=== PATIENT | male | born 1970 | race African-American/Black ===

== ENCOUNTER 2017-04-17 21:03 | Emergency (ER) | payer SELFPAY ==
[~2017-04-17] VITALS: Ht 162.6 cm; Wt 66.0 kg
[2017-04-17 21:05] VITALS: BP 139/95; PULSE 78; RESP 16; TEMP 98; O2SAT 98
[2017-04-17] MEDS ORDERED: BACT800T5 PO (21:41)
[2017-04-17] MEDS ORDERED: DICL75TA PO (21:41)
[2017-04-17] MEDS ORDERED: SULFAMETHOXAZOLE-TRIMETHOPRIM DS 800-160 MG TAB PO ONE (21:45)
[2017-04-17] MEDS ORDERED: ACETAMINOPHEN/HYDROcodone 325 MG/5 MG TAB PO ONE (21:45)
--- NOTE | 2017-04-17 21:49 | PD ---
HPI Chief Complaint: Skin Problem Time Seen by Provider: 21:22 Travel History International Travel<30 days: No Contact w/Intl Traveler<30days: No Traveled to known affect area: No History of Present Illness HPI 47-year-old black male presents emergency Department with complains of a painful lump to his left face over the past week. He states that he had squeezed it multiple times and express pus. He feels this started after getting a ingrown hair when he had shaved the week before. He also states that he's had some pain and swelling in his right little toe. 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 His feet are very hot and sweaty. Patient denies any fever chills. Symptoms are moderate. No alleviating factors. PFSH Past Medical History Medical History: Denies Significant Hx Immunizations Current: Yes Tetanus Vaccination: < 5 Years Past Surgical History Surgical History: No Previous Surgery Social History Alcohol Use: No Tobacco Use: Yes Substance Use: No Allergies-Medications (Allergen,Severity, Reaction): Coded Allergies: No Known Allergies (Unverified , 04/17/17) Reported Meds & Prescriptions Reported Meds & Active Scripts Active Diclofenac Sodium DR (Diclofenac Sodium) 75 Mg Tabdr 75 Mg PO BID Bactrim DS (Sulfamethoxazole-Trimethoprim) 800-160 Mg Tab 1 Tab PO BID Review of Systems General / Constitutional: No: Fever Eyes: No: Visual changes HENT: No: Headaches Cardiovascular: No: Chest Pain or Discomfort Respiratory: No: Shortness of Breath Gastrointestinal: No: Abdominal Pain Genitourinary: No: Dysuria Musculoskeletal: Positive: Pain Skin: Positive Rash, Positive Lumps Neurologic: No: Weakness Psychiatric: No: Depression Endocrine: No: Polydipsia Hematologic/Lymphatic: No: Easy Bruising Physical Exam Narrative GENERAL: This is a well-nourished, well-developed patient, in no apparent distress. SKIN: Patient has a 1.5 x 2 cm fluctuant abscess to the left angle of the mandible. He has multiple scars from ingrown hairs to the left rodriguez. Warm and dry. HEAD: Atraumatic. Normocephalic. EYES: PERRL, EOMI, no discharge or injection. No scleral icterus. EARS: Clear NOSE: Nasal turbinates appear normal. THROAT: Mucosa pink and moist. Airway patent. NECK: Trachea midline. supple, moves head freely. LUNGS: Clear to auscultation. CV: Regular in rhythm. ABDOMEN: Soft nontender. EXT: No clubbing cyanosis or edema. Patient has maceration to the interdigital spaces of the fourth and fifth toe on the right foot. Data Data Last Documented VS Vital Signs Date Time Temp Pulse Resp B/P (MAP) Pulse Ox O2 Delivery O2 Flow Rate FiO2 04/17/17 21:05 98.0 78 16 139/95 (110) 98 Room Air Orders Orders Sulfamet-Trimeth Ds 800-160 Mg (Bactrim (04/17/17 21:45) Acetamin-Hydrocod 325-5 Mg ([place] 5-325 (04/17/17 21:45) Ed Discharge Order (04/17/17 21:41) MDM Medical Decision Making Medical Screen Exam Complete: Yes Emergency Medical Condition: Yes Medical Record Reviewed: Yes Differential Diagnosis MDM: High Differential diagnoses: Abscess, folliculitis, cellulitis, lymphangitis, abrasion, contact dermatitis, tinea pedis Narrative Course An incision and drainage has been performed to his left submandibular abscess. Patient's given Bactrim DS one Lortab 5 a grams by mouth here in the ER. Procedures Procedure Narrative I&D abscess: After the risks and benefits were discussed the following procedure was performed. The skin is prepped and draped in the usual sterile fashion using Betadine. The abscess is anesthetized with 1% lidocaine. After adequate anesthesia, an 11 blade scalpel is used to make a 2 centimeter central incision. Perulant material is expressed.. The wound is cleansed deeply using dilute Betadine and peroxide on Q-tips. The wound is packed open using iodoform gauze. A clean dressing is applied. The patient tolerated the procedure well. There was no complications. Follow-up instructions were given to the patient. Diagnosis Primary Impression: left rodriguez abscess Additional Impression: Tinea pedis Qualified Codes: B35.3 - Tinea pedis Patient Instructions: General Instructions Additional Instructions: Rest. Elevation. keep clean and dry. remove the packing in two days. Daily wound care with soap, water and Neosporin. Diclofenac and Bactrim DS. Lamisil AT 2-3 times daily for the next 2-4 weeks. Follow-up with a primary care doctor in one week. Return to the ER for any problems. Med/Other Pt SpecificInfo: Prescription(s) given Scripts Diclofenac Sodium DR (Diclofenac Sodium DR) 75 Mg Tabdr 75 MG PO BID, #20 TAB 0 Refills Prov: Wes Bonner MD 04/17/17 Sulfamethoxazole-Trimethoprim (Bactrim DS) 800-160 Mg Tab 1 TAB PO BID for Infection, #20 TAB 0 Refills Prov: Wes Bonner MD 04/17/17 Disposition: 01 DISCHARGE HOME Condition: Stable Juan Castaneda Apr 17, 2017 21:49
== END 2017-04-17 22:18 | disposition home or self-care (01) ==
LOC: NEPD 21:03
DX: K12.2 Cellulitis and abscess of mouth (principal); B35.3 Tinea pedis; Z72.0 Tobacco use
CPT/HCPCS: 10061

== ENCOUNTER 2017-05-06 17:32 | Emergency (ER) | payer SELFPAY ==
[~2017-05-06 17:32] MED LIST: BACT800T5 PO; DICL75TA PO
[2017-05-06 17:34] VITALS: BP 134/85; PULSE 95; RESP 18; TEMP 99; O2SAT 99
--- NOTE | 2017-05-06 18:43 | PD ---
HPI Chief Complaint: Skin Problem Time Seen by Provider: 18:35 Travel History International Travel<30 days: No Contact w/Intl Traveler<30days: No Traveled to known affect area: No History of Present Illness HPI Patient comes back to the emergency department complaining of recurrent abscess/ cyst in his left lower jaw. Patient states initially began earlier this month was seen in the ER couple weeks ago he had an I&D. Patient reports taking antibiotics as prescribed however the lump never went away completely has been getting progressively larger and more painful. Patient describes pain as a pressure throbbing like in nature without radiation. Pain is worse to palpation. Denies anything making it better. Denies doing anything for this. Denies any fevers or weight loss. Patient denies ever following up after previous I&D. [facility] Past Medical History Medical History: Denies Significant Hx Immunizations Current: Yes Social History Alcohol Use: No Tobacco Use: Yes Substance Use: No Allergies-Medications (Allergen,Severity, Reaction): Coded Allergies: No Known Allergies (Unverified , 04/17/17) Reported Meds & Prescriptions Reported Meds & Active Scripts Active Keflex (Cephalexin) 500 Mg Cap 500 Mg PO Q8H Bactrim DS (Sulfamethoxazole-Trimethoprim) 800-160 Mg Tab 1 Tab PO BID Diclofenac Sodium DR (Diclofenac Sodium) 75 Mg Tabdr 75 Mg PO BID Review of Systems Except as stated in HPI: all other systems reviewed are Neg Physical Exam Narrative GENERAL: Well-developed, well nourished, in no acute distress, and non-ill appearing. SKIN: Fluctuant abscess noted left submandibular is tender to palpation. There is no crepitus. There is no extensive cellulitis. HEAD: Atraumatic. Normocephalic. EYES: Pupils equal and round. EOMI. No scleral icterus. No injection or drainage. ENT: No nasal bleeding or discharge. Mucous membranes pink and moist. NECK: Trachea midline. No cervical lymphadenopathy. Supple. No nuclear rigidity. RESPIRATORY: No accessory muscle use. No respiratory distress. MUSCULOSKELETAL: No obvious deformities. No clubbing. No cyanosis. No edema. Full range of motion. NEUROLOGICAL: Awake and alert. No obvious cranial nerve deficits. Motor grossly within normal limits. Normal speech. PSYCHIATRIC: Appropriate mood and affect; insight and judgment normal. Data Data Last Documented VS Vital Signs Date Time Temp Pulse Resp B/P (MAP) Pulse Ox O2 Delivery O2 Flow Rate FiO2 05/06/17 17:34 99.0 95 18 134/85 (101) 99 Room Air Orders Orders Wound Culture And Gram Stain (05/06/17 18:40) Lidocai-Epi 1%-1:100,000 Inj (Xylocaine- (05/06/17 18:45) Clindamycin Inj (Cleocin Inj) (05/06/17 19:15) Ed Discharge Order (05/06/17 19:18) MDM Medical Decision Making Medical Screen Exam Complete: Yes Emergency Medical Condition: Yes Differential Diagnosis Abscess, cellulitis, gangrene, folliculitis Narrative Course The patient has no evidence of significant cellulitis. There is no evidence of necrotizing fasciitis/ [place] at this time. The patient will be discharged on antibiotics. The patient was given signs and symptoms warnings for worsening infection, such as spreading of redness, increasing pain, and/or swelling, associated heat, or fever or feels worse, and instructed to return immediately if these signs or symptoms worsen. The patient is to return in 2 days for recheck. Sooner if worsens or as needed. The patient agrees with plan. Patient in no obvious distress upon re-evaluation. Patient was asked if they wanted to speak to my attending, which the patient did not wish to do at this time. Any questions/concerns in reference to patient diagnosis/condition discussed and clarified prior to patient's discharge. Reinforced sheer importance of close follow up with patient's primary physician or primary care clinic and/or return here in 2 days for recheck. Instructed patient to return to ED immediately, if symptoms return/worsen. Patient showed understanding of above instructions. Further instructions and recommendations were detailed in discharge paperwork. Patient ambulated without difficulty out of ED at discharge. Procedures Procedure Narrative INCISION AND DRAINAGE OF ABSCESS: Verbal consent was obtained. The area was prepped. A subcutaneous wheal of 1% Xylocaine with epi with a total number 2 mL mL was used to anesthetize the area during was the abscess spontaneously reopened from previous I&D site. The abscess was drained. Quarter inch iodoform packing was placed in the wound. Sterile dressing applied by nurse. Patient tolerated procedure well. Patient advised to return here in 2 days to have packing removed and wound rechecked. Patient verbalized understanding. Cultures were obtained. Diagnosis Primary Impression: Facial abscess Referrals: [facility] Patient Instructions: Abscess (GEN), Abscess Incision and Drainage (DC), General Instructions Additional Instructions: Follow-up with your primary care physician or return here in 2 days for recheck and packing removal. Take all medication as prescribed. Apply warm compresses to affected area multiple times daily to facilitate drainage. Return to the emergency department if symptoms get worse. Med/Other Pt SpecificInfo: Prescription(s) given Scripts Cephalexin (Keflex) 500 Mg Cap 500 MG PO Q8H for Infection, #30 CAP 0 Refills Prov: Karly Zayas MD 05/06/17 Sulfamethoxazole-Trimethoprim (Bactrim DS) 800-160 Mg Tab 1 TAB PO BID for Infection, #20 TAB 0 Refills Prov: Karly Zayas MD 05/06/17 Disposition: 01 DISCHARGE HOME Condition: Stable Francisco Becerra May 06, 2017 18:43
[2017-05-06] MEDS ORDERED: LIDOCAINE 1%/EPINEPHrine 1:100,000 SOLN 20 ML VIAL INFIL ONE (18:45)
[2017-05-06] MEDS ORDERED: CLINDAMYCIN PHOS 300 MG/2 ML VIAL IM ONE (19:15)
[2017-05-06] MEDS ORDERED: BACT800T5 PO (19:18)
[2017-05-06] MEDS ORDERED: CEPH-460 PO (19:18)
== END 2017-05-06 20:06 | disposition home or self-care (01) ==
LOC: NEPK 17:32
DX: L02.01 Cutaneous abscess of face (principal); B95.7 Other staphylococcus as the cause of diseases classified elsewhere
CPT/HCPCS: 10061; 12001; 87070; 87205; 96372

== ENCOUNTER 2017-06-11 07:14 | Emergency (ER) | payer SELFPAY ==
[~2017-06-11] VITALS: Ht 165.1 cm; Wt 66.0 kg
[~2017-06-11 07:14] MED LIST changes: +CEPH-460 PO
[2017-06-11 07:17] VITALS: BP 136/82; PULSE 82; RESP 13; TEMP 98.5; O2SAT 98
[2017-06-11] MEDS ORDERED: ONDANSETRON ODT 4 MG TAB PO ONE (08:15)
[2017-06-11] MEDS ORDERED: IBUPROFEN 800 MG TAB PO ONE (08:15)
--- NOTE | 2017-06-11 08:54 | PD ---
HPI Chief Complaint: Cold / Flu Symptoms Time Seen by Provider: 07:41 Travel History International Travel<30 days: No Contact w/Intl Traveler<30days: No Traveled to known affect area: No History of Present Illness HPI 47-year-old male presents to the emergency Department with complaint of nasal congestion, headache, cough, nausea 2 days. Denies sore throat or ear pain. Denies abdominal pain, vomiting, diarrhea. Denies fevers. Denies chest pain, shortness of breath. Reports body aches. Also complaining of right pinky toe pain and swelling times one week. Denies injury. Has not taken any medication or drainage from his to alleviate toe pain. Rates pain 8/10. Describes as throbbing. Has tried TheraFlu for symptom management. No known aggravating or relieving factors. No sick contacts. No known allergies. No primary care provider. Denies significant past medical history. Has no other medical complaints. No other modifying factors or associated signs and symptoms. PFSH Past Medical History Medical History: Denies Significant Hx Diminished Hearing: No Immunizations Current: Yes Influenza Vaccination: No Past Surgical History Surgical History: No Previous Surgery Social History Alcohol Use: Yes (occu yesterday) Tobacco Use: Yes (1ppd) Substance Use: No Allergies-Medications (Allergen,Severity, Reaction): Coded Allergies: No Known Allergies (Unverified , 06/11/17) Reported Meds & Prescriptions Reported Meds & Active Scripts Active Review of Systems Except as stated in HPI: all other systems reviewed are Neg Physical Exam Narrative GENERAL: Well-nourished, well-developed male patient, in no acute distress; afebrile, nontoxic-appearing SKIN: Warm and dry. No rash. Right fifth toe is nonedematous, nonerythematous , with tenderness on palpation;-colored crusting noted between the fourth and fifth toes consistent with tinea pedis; no open areas HEAD: Atraumatic. Normocephalic. EYES: Pupils equal and round. No scleral icterus. No injection or drainage. ENT: Mucosa pink and moist. No erythema or exudates. No uvular edema. No uvular , palatal, or tonsillar deviation. Airway patent. EARS: Bilateral pinnae and external canals appear within normal limits. Bilateral tympanic membranes without erythema, dullness or perforation. NECK: Trachea midline. No lymphadenopathy. CARDIOVASCULAR: Regular rate and rhythm. No murmur appreciated. RESPIRATORY: No accessory muscle use. Clear to auscultation. Breath sounds equal bilaterally. No retractions or tachypnea. GASTROINTESTINAL: Abdomen soft, non-tender, nondistended. Hepatic and splenic margins not palpable. Bowel sounds are active 4 quadrants. MUSCULOSKELETAL: No obvious deformities. No clubbing. No cyanosis. No edema. NEUROLOGICAL: Awake and alert. Oriented 3. No obvious cranial nerve deficits. Motor grossly within normal limits. Normal speech. Moves all extremities. 5/5 strength to all extremities. PSYCHIATRIC: Appropriate mood and affect; insight and judgment normal. Data Data Last Documented VS Vital Signs Date Time Temp Pulse Resp B/P (MAP) Pulse Ox O2 Delivery O2 Flow Rate FiO2 06/11/17 07:17 98.5 82 13 136/82 (100) 98 Orders Orders Influenzae A/B Antigen (06/11/17 07:44) Ibuprofen (Motrin) (06/11/17 08:15) Ondansetron Odt (Zofran Odt) (06/11/17 08:15) Ed Discharge Order (06/11/17 08:54) [facility] Medical Decision Making Medical Screen Exam Complete: Yes Emergency Medical Condition: Yes Medical Record Reviewed: Yes Differential Diagnosis Tinea pedis, viral illness, influenza, URI Narrative Course 37-year-old male with tinea pedis and viral illness. Patient is afebrile and nontoxic-appearing. Influenza negative. Ibuprofen and Zofran administered in the ER. Abdominal exam is unremarkable and patient is without tenderness on palpation. He denies abdominal pain. Denies fever or vomiting. Discussed viral one symptom management. Discussed treatment of tinea pedis. Straight the right toe secondary to his pain on palpation and he declined. Instructed patient to follow up with primary care provider. Patient verbalizes understanding and agreement with treatment plan. Patient is medically cleared and stable for discharge. Discussed reasons to return to the emergency department. Patient agrees with treatment plan. The patients vital signs are stable and the patient is stable for outpatient follow-up and treatment. Patient discharged home, stable and in no acute distress. Diagnosis Primary Impression: Viral illness Additional Impression: Tinea pedis Qualified Codes: B35.3 - Tinea pedis Referrals: [facility] Primary Care Physician Patient Instructions: Cold Symptoms (ED), General Instructions, Safe Use of Cough and Cold Medicines (ED), Tinea Pedis (DC) Additional Instructions: Ibuprofen or Tylenol as directed and as needed to reduce fever; may alternate ibuprofen and Tylenol as needed every 3 hours to minimize fever [id number] cold/flu medications as directed and as needed for symptom management Get plenty of sleep/rest Drink plenty of fluids to prevent dehydration; such as Gatorade, Powerade, Pedialyte [place] diet to encourage nutrition such as crackers, fruit, applesauce, toast, soup etc. Use an air humidifier/turn off ceiling fans [id number] athlete's foot spray as directed and as needed Follow-up with your primary care provider within 1 day Return immediately to the emergency department with worsening of symptoms Med/Other Pt SpecificInfo: No Change to Meds, No Meds Exist/No RX given Disposition: 01 DISCHARGE HOME Condition: Stable Cheli Martin Jun 11, 2017 08:53
== END 2017-06-11 09:27 | disposition home or self-care (01) ==
LOC: NEPD 07:14
DX: B34.9 Viral infection, unspecified (principal); B35.3 Tinea pedis; F17.200 Nicotine dependence, unspecified, uncomplicated
CPT/HCPCS: 87804; 99283

== ENCOUNTER 2018-02-05 20:15 | Inpatient (IN) ==
[2018-02-05] MEDS ORDERED: Vancomycin Inj 1 GM/200 ML PIGGYBACK IV.SIG ONE (22:32)
[2018-02-05] MEDS ORDERED: Piperacil/Tazo 3.375 GM Premix 50 ML IV.SIG ONE (22:32)
--- NOTE | 2018-02-05 22:41 | ED ---
HPI General Chief Complaint: Extremity Injury, Lower Stated Complaint: toe pain Time Seen by Provider: 02/05/18 22:03 Source: patient Mode of arrival: ambulatory Limitations: no limitations History of Present Illness HPI Narrative: 47-year-old male the presents to the ED for evaluation of right fifth digit pain and swelling. Patient actually was seen here 2 days ago for evaluation of this. Per patient he has been compliant with antibiotics but he has been noticing more swelling and pain. Per patient he believes others pause on the area. He does state that the area is painful. He denies any chest pain or shortness of breath. He denies any actual injury to it. He states that he has a history of diabetes or immunosuppression. Denies any other medical issues at this time. Per patient the pain is 8 out of 10 is pulsating. Comes and goes. Nothing seems to really make it better. Per patient he has been compliant with the Keflex and Bactrim given. He was also given IV antibiotics at the time. No other medical issues at this time. Has not been able to follow with a hair clipper power. No fevers chills or sweats at this time. Related Data Previous Rx's Medication Instructions Recorded sulfamethoxazole-trimethoprim 1 tab PO Q12H #20 tab 02/03/18 [Bactrim DS] Allergies Allergy/AdvReac Type Severity Reaction Status Date / Time No Known Allergies Allergy Verified 02/05/18 20:28 Review of Systems ROS: all other systems reviewed are negative [facility] Medical History Medical History Patient denies medical problems (Acute) Surgical History Surgical History No history of previous surgery (Acute) Family History Family History Father Cancer Mother Diabetes Mother Hypertension Social History Social History Substance History: No History of Abuse Second Hand Smoke Exposure: No Smoking Status: Current every day smoker Tobacco Type: Cigarettes How Often Do You Have a Drink Containing Alcohol: Never Recent Travel in [facility] within the Last 8 Weeks: No Recent Out of Country Travel within the Last 8 Weeks: No Immunization History Tetanus Immunization: Unsure Exam Narrative Exam Narrative: GENERAL: Well appearing SKIN: Focused skin assessment warm/dry. Has soft tissue swelling noted on the webspace between the fifth and fourth digits. Patient does have what appears to be purulence noted. Erythema noted. Erythema is about 5 cm with the area of purulence encompassing most of the MIP joint of the fifth digit and also the fourth. Very tender to touch. Does appear to have good capillary refill. Fifth toe does appear to have some deformity compared to the fourth toe. 2+ pulses bilaterally in the lower extremities. Sensation appears to be intact. No obvious foreign body or deformity noted other than stated above. HEAD: Atraumatic. Normocephalic. EYES: Pupils equal and round. No scleral icterus. No injection or drainage. ENT: No nasal bleeding or discharge. Mucous membranes pink and moist. NECK: Trachea midline. No JVD. CARDIOVASCULAR: Regular rate and rhythm. No murmur appreciated. RESPIRATORY: No accessory muscle use. Clear to auscultation. Breath sounds equal bilaterally. GASTROINTESTINAL: Abdomen soft, non-tender, nondistended. Hepatic and splenic margins not palpable. MUSCULOSKELETAL: No obvious deformities. No clubbing. No cyanosis. No edema. NEUROLOGICAL: Awake and alert. No obvious cranial nerve deficits. Motor grossly within normal limits. Normal speech. PSYCHIATRIC: Appropriate mood and affect; insight and judgment normal. Course Initial Documented Vital Signs Temperature 98.7 F 02/05/18 20:29 Pulse Rate 79 02/05/18 20:29 Respiratory Rate 16 02/05/18 20:29 Blood Pressure 148/90 H 02/05/18 20:29 Pulse Oximetry 98 02/05/18 20:29 Last Documented Vital Signs Temperature 98.0 F 02/08/18 08:00 Pulse Rate 85 02/08/18 08:00 Respiratory Rate 16 02/08/18 08:00 Blood Pressure 133/86 02/08/18 08:00 Pulse Oximetry 96 02/08/18 08:00 Medical Decision Making [facility] Narrative Medical decision making narrative: 47-year-old male the presents to the ED for evaluation of what appears to be infection of his fifth toe. Patient was properly examined and was found to have signs and symptoms concerning for infected toe. Deafly concern the patient may require surgical treatment for this. He does have a deformity noted to the toe. Recommendation at this time is for labs and imaging. Patient agrees. Patient will start IV vancomycin and Zosyn. Case was signed out to my attending pending disposition and plan. Medical Screen Exam Complete: Yes Emergency Medical Condition: Yes Differential Diagnosis Differential Diagnosis: Abscess versus cellulitis versus osteomyelitis versus failed outpatient treatment Medical Records Medical records reviewed: Yes I reviewed the patient's medical records. Lab Data Lab results reviewed: Yes I reviewed the patient's lab results. Result diagrams: 02/07/18 04:28 02/07/18 04:28 Lab Results 02/05/18 02/05/18 02/05/18 Range/Units 23:00 23:00 23:00 WBC 6.5 (4.0-11.0) th/mm3 RBC 4.75 (4.50-5.90) mil/mm3 Hgb 15.9 (13.0-17.0) gm/dL Hct 45.1 (39.0-51.0) % MCV 94.8 (80.0-100.0) fL MCH 33.5 (27.0-34.0) pg MCHC 35.3 (32.0-36.0) % RDW 13.9 (11.6-17.2) % Plt Count 188 (150-450) th/mm3 MPV 9.2 (7.0-11.0) fL Neut % (Auto) 63.2 (16.0-70.0) % Lymph % (Auto) 27.1 (9.0-44.0) % Haskell % (Auto) 6.7 (0.0-8.0) % Eos % (Auto) 2.1 (0.0-4.0) % Baso % (Auto) 0.9 (0.0-2.0) % Neut # (Auto) 4.1 (1.8-7.7) th/mm3 Lymph # (Auto) 1.8 (1.0-4.8) th/mm3 Haskell # (Auto) 0.4 (0.0-0.9) th/mm3 Eos # (Auto) 0.1 (0.0-0.4) th/mm3 Baso # (Auto) 0.1 (0.0-0.2) th/mm3 WBC Differential . Differential Comment Auto diff final ESR 11 (0-15) mm/hr Sodium 137 (136-145) meq/L Potassium 3.9 (3.5-5.1) meq/L Chloride 103 (98-107) meq/L Carbon Dioxide 24.4 (21.0-32.0) meq/L Anion Gap 10 (5-15) meq/L BUN 6 L (7-18) mg/dL Creatinine 0.91 (0.60-1.30) mg/dL Estimated GFR Greater than 89 (>89) mL/min Random Glucose 75 (74-106) mg/dL Calcium 9.0 (8.5-10.1) mg/dL Total Bilirubin (0.2-1.0) mg/dL AST (15-37) U/L ALT (12-78) U/L Alkaline Phosphatase (45-117) U/L C-Reactive Protein 1.00 H (0.00-0.30) mg/dL Total Protein (6.4-8.2) g/dL Albumin (3.4-5.0) g/dL Vancomycin Trough (5.0-10.0) mcg/mL 02/07/18 02/07/18 02/07/18 Range/Units 04:28 04:28 22:30 WBC 4.7 (4.0-11.0) th/mm3 RBC 4.27 L (4.50-5.90) mil/mm3 Hgb 14.1 (13.0-17.0) gm/dL Hct 41.0 (39.0-51.0) % MCV 96.0 (80.0-100.0) fL MCH 33.0 (27.0-34.0) pg MCHC 34.4 (32.0-36.0) % RDW 13.7 (11.6-17.2) % Plt Count 183 (150-450) th/mm3 MPV 8.9 (7.0-11.0) fL Neut % (Auto) 40.4 (16.0-70.0) % Lymph % (Auto) 42.1 (9.0-44.0) % Haskell % (Auto) 12.6 H (0.0-8.0) % Eos % (Auto) 4.2 H (0.0-4.0) % Baso % (Auto) 0.7 (0.0-2.0) % Neut # (Auto) 1.9 (1.8-7.7) th/mm3 Lymph # (Auto) 2.0 (1.0-4.8) th/mm3 Haskell # (Auto) 0.6 (0.0-0.9) th/mm3 Eos # (Auto) 0.2 (0.0-0.4) th/mm3 Baso # (Auto) 0.0 (0.0-0.2) th/mm3 WBC Differential . Differential Comment Auto diff final ESR (0-15) mm/hr Sodium 140 (136-145) meq/L Potassium 4.2 (3.5-5.1) meq/L Chloride 105 (98-107) meq/L Carbon Dioxide 28.1 (21.0-32.0) meq/L Anion Gap 7 (5-15) meq/L BUN 6 L (7-18) mg/dL Creatinine 0.94 (0.60-1.30) mg/dL Estimated GFR Greater than 89 (>89) mL/min Random Glucose 82 (74-106) mg/dL Calcium 8.6 (8.5-10.1) mg/dL Total Bilirubin 0.3 (0.2-1.0) mg/dL AST 24 (15-37) U/L ALT 17 (12-78) U/L Alkaline Phosphatase 65 (45-117) U/L C-Reactive Protein (0.00-0.30) mg/dL Total Protein 6.9 (6.4-8.2) g/dL Albumin 3.1 L (3.4-5.0) g/dL Vancomycin Trough 9.9 (5.0-10.0) mcg/mL Imaging Data Attestation: I personally reviewed and interpreted this imaging study as follows : Radiologist's impression: Toe X-Ray 02/05/18 22:32 CONCLUSION: Suspected soft tissue swelling between the fourth and fifth MTP joints with some lack of visualization of the cortex at the medial aspect of the fifth metatarsal head. Osteomyelitis cannot be excluded. Foot MRI 02/06/18 00:00 CONCLUSION: 1. There are no imaging findings to indicate osteomyelitis. 2. Severe soft tissue swelling and subcutaneous edema involving the distal lateral aspect of the left foot, the entire fifth digit, and the lateral aspect of the fourth digit. There is what appears to be a blister along the dorsal aspect of the fifth digit. No well-defined organized fluid collection or abscess is identified. However, there is some nonenhancing fluid signal between the fourth and fifth digits. Suggest follow-up if condition persists. Discharge Plan Discharge Disposition Patient Disposition: 30 Still Patient Discharge Details Diagnosis: Cellulitis of foot, right Physicians Team ED Provider: Edward Benitez ED Midlevel Provider: Jomar Hickey Primary Care Provider: Primary Care Minerva Cuello Attending Provider: Salvatore Montenergo Other Providers: Kamla Nathan Status ED Status: Left Department Discharge Information Discharge Date/Time: 02/06/18 03:19
[2018-02-05] MEDS ORDERED: Morphine Inj 4 MG/ML Vial IV.PUSH ONE (22:52)
[2018-02-05] MEDS ORDERED: Vancomycin Inj 1,000 MG in Sodium Chlor 0.9% Inj 250 ML IV.SIG ONE (23:00)
[2018-02-05 23:27] LABS: Baso # (Auto) 0.1 th/mm3 (0.0-0.2); Baso % (Auto) 0.9 % (0.0-2.0); Eos # (Auto) 0.1 th/mm3 (0.0-0.4); Eos % (Auto) 2.1 % (0.0-4.0); Hematocrit 45.1 % (39.0-51.0); Hemoglobin 15.9 gm/dL (13.0-17.0); Lymph # (Auto) 1.8 th/mm3 (1.0-4.8); Lymph % (Auto) 27.1 % (9.0-44.0); Mean Corpuscular HGB Conc 35.3 % (32.0-36.0); Mean Corpuscular Hemoglobin 33.5 pg (27.0-34.0); Mean Corpuscular Volume 94.8 fL (80.0-100.0); Mean Platelet Volume 9.2 fL (7.0-11.0); Mono # (Auto) 0.4 th/mm3 (0.0-0.9); Mono % (Auto) 6.7 % (0.0-8.0); Neut # (Auto) 4.1 th/mm3 (1.8-7.7); Neut % (Auto) 63.2 % (16.0-70.0); Platelet Count 188 th/mm3 (150-450); Red Blood Count 4.75 mil/mm3 (4.50-5.90); Red Cell Distribution Width 13.9 % (11.6-17.2); White Blood Count 6.5 th/mm3 (4.0-11.0)
--- NOTE | 2018-02-05 23:44 | XR ---
EXAM DATE: 02/05/2018 10:32 PM EDT AGE/SEX: 47 years / Male INDICATIONS: 5th digit pain. Possible infection. Patient had images and the same complaint on 018. CLINICAL DATA: This is the patient's sequela encounter. Patient reports that signs and symptoms have been present for 4 - 6 days and indicates a pain score of 10/10. MEDICAL/SURGICAL HISTORY: None. None. COMPARISON: [facility] [place], FOOT COMPLETE RIGHT 3V, 02/03/2018. . FINDINGS: No fracture is seen. There does appear to be soft tissue swelling between the fourth and fifth MTP randy int regions. An area of definite bony destruction is not seen however, the cortex at the medial aspec t of the fifth metatarsal head is not well-defined. CONCLUSION: Suspected soft tissue swelling between the fourth and fifth MTP joints with some lack of visualizatio n of the cortex at the medial aspect of the fifth metatarsal head. Osteomyelitis cannot be excluded. Electronically signed by: Jonathan Crawford MD 02/05/2018 11:43 PM EDT
[2018-02-05 23:54] LABS: Anion Gap 10 meq/L (5-15); Blood Urea Nitrogen 6 mg/dL (7-18); Carbon Dioxide 24.4 meq/L (21.0-32.0); Chloride 103 meq/L (98-107); Glomerular Filtration Rate Greater Than 89 mL/min (>89); Glucose,Random 75 mg/dL (74-106); Potassium 3.9 meq/L (3.5-5.1); Sodium 137 meq/L (136-145)
[2018-02-06] MEDS ORDERED: Vancomycin Consult Pharmacy OTHER PRN (02:08)
[2018-02-06] MEDS ORDERED: Bisacodyl 10 MG Supp RECTAL PRN (02:10)
[2018-02-06] MEDS ORDERED: Morphine Sulfate Inj 2 MG/ML Vial IV.PUSH ONE (02:28)
[2018-02-06] MEDS: Sod Chloride 0.9% Inj 1,000 ML IV.CONT SCH ×3 (02:36→22:27)
--- NOTE | 2018-02-06 04:41 | P.HPIM ---
History of Present Illness Primary Care Physician: No Primary Care Physician History of Present Illness: 47-year-old male with no pertinent medical history who presents with a one-week history of swelling, redness, constant sharp nonradiating pain in the right lateral foot which is worse with movement. Patient was seen in the ER on 02/04, sent home with prescription for Keflex and Bactrim which he has been taking without improvement, and with continued worsening of pain in right foot. He denies any fevers, chills, chest pain, shortness of breath. Says that he is otherwise feeling all right apart from the excruciating pain. Inpatient Certification: I certify that the inpatient services were ordered in accordance with Medicare regulations governing the order. This includes certification that hospital inpatient services are reasonable and necessary and in the case of services not specified as inpatient-only under 42 CFR 419.22(n), that they are appropriately provided as inpatient services in accordance to with the 2-midnight benchmark under 43 CFR 412.3(e) Estimated Total Length of Stay (Days): 2 Plans for Post Hospital Care: Not yet determined Review of Systems All other systems reviewed negative except as stated [facility] - History History Provided By: Patient - Medical History Medical History: Medical History (Last Reviewed 02/05/18 @ 22:39 by JADA Kent) Patient denies medical problems - Surgical History Surgical History: Surgical History (Last Reviewed 02/05/18 @ 22:39 by JADA Kent) No history of previous surgery - Family History Family History: Family History (Last Updated 02/06/18 @ 04:36 by Parish Patterson MD) Father Cancer Mother Diabetes Mother Hypertension - Tobacco History Second Hand Smoke Exposure: No Tobacco Use In Past 30 Days: Yes Smoking Status: Current every day smoker Tobacco Type: Cigarettes - Alcohol History How Often Do You Have a Drink Containing Alcohol: Never - Substance Use History Substance History: No History of Abuse - Travel History Recent Travel in the [place] Within the Last 8 Weeks: No Recent Travel Out of the Country Within the Last 8 Weeks: No - Immunization History Tetanus Immunization: Unsure Medications and Allergies Active Medications: Active Medications Al Hydroxide/Mg Hydroxide (Milk Of Magnesia Liq) 30 ml PO Q12H PRN PRN Reason: Mild Constipation Bisacodyl (Dulcolax Supp) 10 mg RECTAL DAILY PRN PRN Reason: SEVERE CONSITIPATION Piperacillin/Tazobactam/Dextrose (Zosyn 4.5 Gm Premix) 4.5 gm in 100 mls @ 200 mls/hr IV.SIG Q6H BE Sodium Chloride (Ns Inj) 1,000 mls @ 100 mls/hr IV.CONT .Q10H BE Last Admin: 02/06/18 02:36 Dose: 100 mls/hr Lactulose (Lactulose Liq) 30 ml PO DAILY PRN PRN Reason: SEVERE CONSITIPATION Pharmacy Profile Note (Vancomycin Consult Pharmacy) 1 each OTHER UNSCH PRN PRN Reason: Pharmacy to dose Sennosides (Senokot) 17.2 mg PO Q12H PRN PRN Reason: Moderate Constipation Allergies Allergy/AdvReac Type Severity Reaction Status Date / Time No Known Allergies Allergy Verified 02/05/18 20:28 Exam Vital signs: Vital Signs 02/05/18 20:29 02/05/18 23:30 02/06/18 02:35 Temperature 98.7 F Pulse Rate 79 74 73 Respiratory Rate 16 16 16 Blood Pressure 148/90 H 165/92 H 136/88 Pulse Oximetry 98 98 98 Intake & Output 02/05/18 02/05/18 02/06/18 06:59 18:59 06:59 Intake Total 300 / 300 Balance 300 / 300 Weight 63.503 kg Intake: IV 300 / 300 Zosyn 3.375 GM Premix 50 ML @ 50 / 50 100 mls/hr IV.SIG ONCE ONE Rx#: [id number] Vancomycin Inj 1,000 MG In NS 250 / 250 Inj 250 ML @ 200 mls/hr IV.SIG ONCE ONE Rx#:[id number] Other: Date of Last Bowel Movement 02/05/18 Narrative: GENERAL: Patient sitting up in bed. Appears uncomfortable. Alert and oriented x3. SKIN: Warm and dry. HEAD: Atraumatic. Normocephalic. EYES: Pupils equal and round. No scleral icterus. No injection or drainage. ENT: No nasal bleeding or discharge. Mucous membranes pink and moist. NECK: Trachea midline. No JVD. CARDIOVASCULAR: Regular rate and rhythm. RESPIRATORY: No accessory muscle use. Clear to auscultation. Breath sounds equal bilaterally. GASTROINTESTINAL: Abdomen soft, non-tender, nondistended. Hepatic and splenic margins not palpable. MUSCULOSKELETAL: Extremities without clubbing, cyanosis. Right fifth toe with demarcated erythema, warmth, induration. No obvious deformities. NEUROLOGICAL: Awake and alert. No obvious cranial nerve deficits. Motor grossly within normal limits. Five out of 5 muscle strength in the arms and legs. Normal speech. PSYCHIATRIC: Appropriate mood and affect; insight and judgment normal. Results - Labs CBC & Chem 7: 02/05/18 23:00 02/05/18 23:00 Labs: Short CBC 02/05/18 Range/Units 23:00 WBC 6.5 (4.0-11.0) th/mm3 Hgb 15.9 (13.0-17.0) gm/dL Hct 45.1 (39.0-51.0) % Plt Count 188 (150-450) th/mm3 BMP 02/05/18 23:00 Sodium 137 Potassium 3.9 Chloride 103 Carbon Dioxide 24.4 BUN 6 L Creatinine 0.91 Calcium 9.0 - Imaging Impressions Toe X-Ray 02/05/18 22:32 CONCLUSION: Suspected soft tissue swelling between the fourth and fifth MTP joints with some lack of visualization of the cortex at the medial aspect of the fifth metatarsal head. Osteomyelitis cannot be excluded. Caprini VTE Risk Assessment Caprini VTE Risk Assessment: Moderate/High Risk (score >= 2) Caprini Risk Assessment Model: Point Value = 1 Point Value = 2 Point Value = 3 Point Value = 5 Age 41-60 Minor surgery BMI > 25 kg/m2 Swollen legs Varicose veins or History of unexplained or recurrent spontaneous Oral contraceptives or hormone replacement Sepsis (< 1 month) Serious lung disease, including pneumonia (< 1 month) Abnormal pulmonary function Acute myocardial infarction Congestive heart failure (< 1 month) History of inflammatory bowel disease Medical patient at bed rest Age 61-74 Arthroscopic surgery Major open surgery (> 45 min) Laparoscopic surgery (> 45 min) Malignancy Confined to bed (> 72 hours) Immobilizing plaster cast Central venous access Age >= 75 History of VTE Family history of VTE Factor V Leiden Prothrombin [id number] Lupus anticoagulant Anticardiolipin antibodies Elevated serum homocysteine Heparin-induced thrombocytopenia Other congenital or acquired thrombophilia Stroke (< 1 month) Elective arthroplasty Hip, pelvis, or leg fracture Acute spinal cord injury (< 1 month) Prophylaxis Regimen: Total Risk Factor Score Risk Level Prophylaxis Regimen 0-1 Low Early ambulation 2 Moderate Order ONE of the following: *Sequential Compression Device (SCD) *Heparin 5000 units SQ BID 3-4 Higher Order ONE of the following medications: *Heparin 5000 units SQ TID *Enoxaparin/Lovenox 40 mg SQ daily (WT < 150 kg, CrCl > 30 mL/min) *Enoxaparin/Lovenox 30 mg SQ daily (WT < 150 kg, CrCl > 10-29 mL/min) *Enoxaparin/Lovenox 30 mg SQ BID (WT < 150 kg, CrCl > 30 mL/min) AND/OR *Sequential Compression Device (SCD) 5 or more Highest Order ONE of the following medications: *Heparin 5000 units SQ TID (Preferred with Epidurals) *Enoxaparin/Lovenox 40 mg SQ daily (WT < 150 kg, CrCl > 30 mL/min) *Enoxaparin/Lovenox 30 mg SQ daily (WT < 150 kg, CrCl > 10-29 mL/min) *Enoxaparin/Lovenox 30 mg SQ BID (WT < 150 kg, CrCl > 30 mL/min) AND *Sequential Compression Device (SCD) Assessment and Plan - Plan //Suspected fourth and fifth toe osteomyelitis //For the fifth toe cellulitis //Failure of outpatient treatment with by mouth Keflex and Bactrim Placed on broad-spectrum antibiotics. X-ray foot reviewed and cannot rule out osteomyelitis Podiatry will be consulted. //Elevated blood pressure on admission this has improved. Continue to monitor. Was likely secondary to pain. Discussed Condition With: patient, nurse, ED physician, at bedside. H&P: Quality - VTE Deep Vein Thrombosis/Pulmonary Embolism Present on Admission: No
[2018-02-06] MEDS ORDERED: Naloxone Inj 0.4 MG/ML Vial IV.PUSH PRN (04:42)
[2018-02-06] MEDS: Morphine Inj 4 MG/ML Vial IV.PUSH PRN ×4 (04:57→22:06)
[2018-02-06] MEDS: Piperacil/Tazo 4.5 GM Premix 4.5 GM/100 ML BAG IV.SIG SCH ×3 (04:57→18:12)
[2018-02-06] MEDS ORDERED: Gadobutrol PF 7.5 MMOL/7.5 ML Vial (for RAD) IV.SIG ONE (09:32)
--- NOTE | 2018-02-06 10:12 | MR ---
EXAM DATE: 02/06/2018 8:40 AM EDT AGE/SEX: 47 years / Male INDICATIONS: Osteomyelitis. Swollen area between fourth and fifth digit. CLINICAL DATA: This is the patient's initial encounter. Patient reports that signs and symptoms have been present for 1 day and indicates a pain score of 5/10. MEDICAL/SURGICAL HISTORY: None. None. COMPARISON: [facility], FOOT COMPLETE RIGHT 3V, 02/03/2018. [facility], TOE RIGHT 5TH DIGIT MIN2V, 02/05/2018 . . TECHNIQUE: Multiplanar, multisequence MRI examination was performed without contrast and after th e intravenous administration of 6 ml Gadavist (gadobutrol) single exam dose. FINDINGS: There is severe edema along the lateral aspect of the distal left foot, involving the entire fifth di git, the lateral aspect of the fourth digit, and the soft tissue between the fourth and fifth digits proximally. This severe edema demonstrates enhancement. Along the dorsal aspect of the fifth digit th ere is a subcutaneous nonenhancing fluid collection. All of the visualized bones demonstrate normal T 1 signal and no definite bone marrow edema. CONCLUSION: 1. There are no imaging findings to indicate osteomyelitis. 2. Severe soft tissue swelling and subcutaneous edema involving the distal lateral aspect of the lef t foot, the entire fifth digit, and the lateral aspect of the fourth digit. There is what appears to be a blister along the dorsal aspect of the fifth digit. No well-defined organized fluid collection o r abscess is identified. However, there is some nonenhancing fluid signal between the fourth and fift h digits. Suggest follow-up if condition persists. Electronically signed by: Jonathan Pickens MD 02/06/2018 10:10 AM EDT
[2018-02-06] MEDS: Vancomycin Inj 1,250 MG in Sodium Chlor 0.9% Inj 250 ML IV.SIG SCH ×2 (11:17→22:25)
--- NOTE | 2018-02-06 12:09 | MB ---
cc: Kamla Nathan DATE: 02/06/2018 CHIEF COMPLAINT: Right foot ulceration with infection. HISTORY OF PRESENT ILLNESS: Mr. Campoverde is a 47-year-old male patient with no pertinent medical history. He states that he has had a cut between the right fourth and fifth digit for several months, but over the last week it has begun to swell more and become extremely painful. He was seen in the ER on 02/04/2018 and given prescriptions for Keflex and Bactrim, which he did take, but continued to have worsening pain in the foot. He was reevaluated and admitted earlier this morning. He denies any nausea, vomiting, fever, headache or chills, just states that he is in severe pain to the right foot. PAST MEDICAL HISTORY: None. PAST SURGICAL HISTORY: None. FAMILY HISTORY: Noncontributory. SOCIAL HISTORY: The patient is a daily smoker. Denies any alcohol or drug abuse. 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 PHYSICAL EXAMINATION: VITAL SIGNS: Temperature is 98.0, pulse 81, respiratory rate 20, blood pressure 131/78, pulse oximetry 99% O2 on room air. EXTREMITIES: The patient has palpable DP and PT pulses. Capillary refill time is less than 3 seconds. Gross sensation is intact. There is a large purulent-appearing bulla on the dorsal aspect over the fourth interspace of the right foot. Extremely sensitive to touch with a deep probing and laceration-type wound in the fourth interspace. LABORATORY DATA: White count 6.5, hemoglobin 15.9, hematocrit 45.1, platelets 188. Sodium 137, potassium 3.9, chloride 103, carbon dioxide 24.4, BUN 6. Random glucose 75. C-reactive protein 1.0 reports. REPORTS: X-rays showed soft tissue swelling between the fourth and fifth metatarsophalangeal joints with questionable osteomyelitis of the fifth metatarsal head. X-rays show superficial abscess and interspace swelling but no signs of osteomyelitis. PROCEDURE: The foot was cleaned using alcohol swab pads and the abscess was the deroofed. Deep cultures were obtained. Thick callus tissue was removed from the fourth interspace in order to gain access to the original wound site. The area was then cleansed with sterile saline and gauze. The wound site was probed. There was no exposed bone, but it does probe just shy of 1 inch into the first interspace. Total wound is approximately 2 x 1 cm x 1 cm. There was thick purulent drainage noted from the superficial abscess, but none from the deep interspace wound. There is cellulitis extending to the mid foot level. ASSESSMENT AND PLAN: 1. Right foot abscess with cellulitis, no osteomyelitis. -Deep cultures are pending. -The patient's infection is severe and interspace infections are notoriously challenging to heal. I would recommend at this point that despite the lack of osteomyelitis, the patient needs at least 2 weeks of a PICC line. ID will be consulted to further weigh in on this concern. - Daily wound care orders placed for nursing staff. - Consult placed for case management as the patient is uninsured and will need help obtaining IV antibiotics and proper wound care once he is discharged. - Anticipate 2-3 days' stay in the hospital due to the severity of the cellulitic infection. - We will continue to monitor the patient while inhouse. Thank you for this consultation. MIMI Perez , 10:38 AM , 10:45 AM SUKUMAR
[2018-02-07] MEDS: Piperacil/Tazo 4.5 GM Premix 4.5 GM/100 ML BAG IV.SIG SCH ×5 (00:21→22:26)
[2018-02-07 04:55] LABS: Baso % (Auto) 0.7 % (0.0-2.0); Eos # (Auto) 0.2 th/mm3 (0.0-0.4); Eos % (Auto) 4.2 % (0.0-4.0); Hemoglobin 14.1 gm/dL (13.0-17.0); Lymph % (Auto) 42.1 % (9.0-44.0); Mean Corpuscular HGB Conc 34.4 % (32.0-36.0); Mean Platelet Volume 8.9 fL (7.0-11.0); Mono # (Auto) 0.6 th/mm3 (0.0-0.9); Mono % (Auto) 12.6 % (0.0-8.0); Neut # (Auto) 1.9 th/mm3 (1.8-7.7); Neut % (Auto) 40.4 % (16.0-70.0); Platelet Count 183 th/mm3 (150-450); Red Blood Count 4.27 mil/mm3 (4.50-5.90); Red Cell Distribution Width 13.7 % (11.6-17.2); White Blood Count 4.7 th/mm3 (4.0-11.0)
[2018-02-07 05:43] LABS: Albumin 3.1 g/dL (3.4-5.0); Anion Gap 7 meq/L (5-15); Aspartate Aminotransferase 24 U/L (15-37); Blood Urea Nitrogen 6 mg/dL (7-18); Calcium 8.6 mg/dL (8.5-10.1); Carbon Dioxide 28.1 meq/L (21.0-32.0); Chloride 105 meq/L (98-107); Glomerular Filtration Rate Greater Than 89 mL/min (>89); Glucose,Random 82 mg/dL (74-106); Potassium 4.2 meq/L (3.5-5.1); Sodium 140 meq/L (136-145)
[2018-02-07 05:48] LABS: Alanine Aminotransferase 17 U/L (12-78); Alkaline Phosphatase 65 U/L (45-117); Total Protein 6.9 g/dL (6.4-8.2)
[2018-02-07] MEDS: Morphine Inj 4 MG/ML Vial IV.PUSH PRN (10:05)
--- NOTE | 2018-02-07 10:16 | P.PNPOD ---
Subjective Interval history: s/p bedside I&D right foot, 02/06/18. Pt states that the foot is feeling better then yesterday, but remains painful. Physical Exam Vital signs: Vital Signs 02/06/18 12:00 02/06/18 16:00 02/06/18 20:00 Temperature 98.5 F 98.3 F 98.5 F Pulse Rate 78 68 75 Respiratory Rate 20 20 18 Blood Pressure 143/71 H 128/84 119/69 Pulse Oximetry 97 96 96 02/06/18 23:25 02/07/18 00:00 02/07/18 02:59 Temperature 98.1 F Pulse Rate 68 Respiratory Rate 18 18 18 Blood Pressure 120/77 Pulse Oximetry 98 02/07/18 04:00 02/07/18 08:00 Temperature 98.0 F 97.6 F Pulse Rate 70 62 Respiratory Rate 18 20 Blood Pressure 130/70 118/63 Pulse Oximetry 97 96 Intake & Output 02/06/18 02/07/18 02/07/18 18:59 06:59 18:59 Intake Total 2202.5 / 2202.5 1562.5 / 1562.5 Output Total 1600 / 1600 Balance 602.5 / 602.5 1562.5 / 1562.5 Weight 53.4 kg Intake: IV 1362.5 / 1362.5 1562.5 / 1562.5 NS Inj 1,000 ML @ 100 mls/hr IV 1000 / 1000 1000 / 1000 .CONT .Q10H BE Rx#:[id number] Zosyn 4.5 GM Premix 4.5 gm In 100 / 100 300 / 300 100 ml @ 200 mls/hr IV.SIG Q6H BE Rx#:[id number] Vancomycin Inj 1,250 MG In NS 262.5 / 262.5 262.5 / 262.5 Inj 250 ML @ 250 mls/hr IV.SIG Q12H BE Rx#:[id number] Oral 840 / 840 Output: Urine 1600 / 1600 Other: # Voids 2 Date of Last Bowel Movement 02/05/18 Narrative: Erythema decreased to the distal lateral foot around the fifth digit, no longer extending to the midfoot. Interspace wound is granular but remains deep probing , no purulence at packing change. Medications and Allergies Active Medications: Active Medications Hydrocodone Bitart/Acetaminophen ([place] 7.5/325) 1 tab PO Q4H PRN PRN Reason: PAIN SCALE 6 TO 10 Last Admin: 02/07/18 05:41 Dose: 1 tab Hydrocodone Bitart/Acetaminophen ([place] 5/325) 1 tab PO Q4H PRN PRN Reason: PAIN SCALE 3 TO 5 Al Hydroxide/Mg Hydroxide (Milk Of Magnesia Liq) 30 ml PO Q12H PRN PRN Reason: Mild Constipation Bacitracin (Baciguent Oint) 1 applicatio TOPICAL BID [facility] Last Admin: 02/07/18 09:13 Dose: Not Given Bisacodyl (Dulcolax Supp) 10 mg RECTAL DAILY PRN PRN Reason: SEVERE CONSITIPATION Sodium Chloride (Ns Inj) 1,000 mls @ 100 mls/hr IV.CONT .Q10H [facility] Last Admin: 02/06/18 22:27 Dose: 100 mls/hr Vancomycin HCl 1,250 mg/ (Sodium Chloride) 262.5 mls @ 250 mls/hr IV.SIG Q12H [facility] Last Infusion: 02/06/18 23:28 Dose: Infused Piperacillin/Tazobactam/Dextrose (Zosyn 4.5 Gm Premix) 4.5 gm in 100 mls @ 200 mls/hr IV.SIG Q6H [facility] Last Infusion: 02/07/18 06:17 Dose: Infused Lactulose (Lactulose Liq) 30 ml PO DAILY PRN PRN Reason: SEVERE CONSITIPATION Miscellaneous Information ([facility] Ordered Lab Info) 0 each OTHER ONCE ONE Stop: 02/07/18 21:46 Morphine Sulfate (Morphine Inj) 4 mg IV.PUSH Q3H PRN PRN Reason: BREAKTHROUGH PAIN Last Admin: 02/07/18 10:05 Dose: 4 mg Naloxone HCl (Narcan Inj) 0.4 mg IV.PUSH UNSCH PRN PRN Reason: SEE LABEL COMMENTS Pharmacy Profile Note (Vancomycin Consult Pharmacy) 1 each OTHER UNSCH PRN PRN Reason: Pharmacy to dose Sennosides (Senokot) 17.2 mg PO Q12H PRN PRN Reason: Moderate Constipation Allergies Allergy/AdvReac Type Severity Reaction Status Date / Time No Known Allergies Allergy Verified 02/05/18 20:28 Results - Labs CBC & Chem 7: 02/07/18 04:28 09/30/18 04:28 Laboratory Results - last 24 hr 02/07/18 02/07/18 04:28 04:28 WBC 4.7 RBC 4.27 L Hgb 14.1 Hct 41.0 MCV 96.0 MCH 33.0 MCHC 34.4 RDW 13.7 Plt Count 183 MPV 8.9 Neut % (Auto) 40.4 Lymph % (Auto) 42.1 [place] % (Auto) 12.6 H Eos % (Auto) 4.2 H Baso % (Auto) 0.7 Neut # (Auto) 1.9 Lymph # (Auto) 2.0 [place] # (Auto) 0.6 Eos # (Auto) 0.2 Baso # (Auto) 0.0 WBC Differential . Differential Comment Auto diff final Sodium 140 Potassium 4.2 Chloride 105 Carbon Dioxide 28.1 Anion Gap 7 BUN 6 L Creatinine 0.94 Estimated GFR Greater than 89 Random Glucose 82 Calcium 8.6 Total Bilirubin 0.3 AST 24 ALT 17 Alkaline Phosphatase 65 Total Protein 6.9 Albumin 3.1 L Microbiology 02/06/18 10:33 Abscess - Foot Gram Stain - Final 02/05/18 22:55 Blood - Peripheral Aerobic Blood Culture - Preliminary No growth in 1 day 02/05/18 22:55 Blood - Peripheral Anaerobic Blood Culture - Preliminary No growth in 1 day 02/05/18 23:00 Blood - Peripheral Aerobic Blood Culture - Preliminary No growth in 1 day 02/05/18 23:00 Blood - Peripheral Anaerobic Blood Culture - Preliminary No growth in 1 day - Imaging Impressions Foot MRI 02/06/18 00:00 CONCLUSION: 1. There are no imaging findings to indicate osteomyelitis. 2. Severe soft tissue swelling and subcutaneous edema involving the distal lateral aspect of the left foot, the entire fifth digit, and the lateral aspect of the fourth digit. There is what appears to be a blister along the dorsal aspect of the fifth digit. No well-defined organized fluid collection or abscess is identified. However, there is some nonenhancing fluid signal between the fourth and fifth digits. Suggest follow-up if condition persists. Assessment and Plan - Assessment (1) Cellulitis of foot, right Code(s): L03.115 - Cellulitis of right lower limb Status: Acute - Plan -cont iv abx -cont daily packing -WBAT in surgical shoe -cont to feel that and ID consult and possibly 2 weeks of iv abx would be beneficial -deep wound culture results pending -will need HHC and f/u at [facility] at time of d/c
[2018-02-07] MEDS: Vancomycin Inj 1,250 MG in Sodium Chlor 0.9% Inj 250 ML IV.SIG SCH ×2 (11:02→22:33)
[2018-02-07] MEDS: Sod Chloride 0.9% Inj 1,000 ML IV.CONT SCH ×2 (11:11→22:30)
--- NOTE | 2018-02-07 15:04 | P.PN ---
Subjective Interval history: Patient is seen lying quietly in bed. He tells me that his foot does feel much better however he still does have some pain. He is very anxious to go home as soon as possible. No new complaints. Physical Exam Vital signs: Vital Signs 02/06/18 16:00 02/06/18 20:00 02/06/18 23:25 Temperature 98.3 F 98.5 F Pulse Rate 68 75 Respiratory Rate 20 18 18 Blood Pressure 128/84 119/69 Pulse Oximetry 96 96 02/07/18 00:00 02/07/18 02:59 02/07/18 04:00 Temperature 98.1 F 98.0 F Pulse Rate 68 70 Respiratory Rate 18 18 18 Blood Pressure 120/77 130/70 Pulse Oximetry 98 97 02/07/18 08:00 02/07/18 12:00 Temperature 97.6 F 97.9 F Pulse Rate 62 81 Respiratory Rate 20 20 Blood Pressure 118/63 121/63 Pulse Oximetry 96 97 Intake & Output 02/06/18 02/07/18 02/07/18 18:59 06:59 18:59 Intake Total 2202.5 / 2202.5 1562.5 / 1562.5 1362.5 / 1362.5 Output Total 1600 / 1600 Balance 602.5 / 602.5 1562.5 / 1562.5 1362.5 / 1362.5 Weight 53.4 kg Intake: IV 1362.5 / 1362.5 1562.5 / 1562.5 1362.5 / 1362.5 NS Inj 1,000 ML @ 100 mls/hr IV 1000 / 1000 1000 / 1000 1000 / 1000 .CONT .Q10H BE Rx#:[id number] Zosyn 4.5 GM Premix 4.5 gm In 100 / 100 300 / 300 100 / 100 100 ml @ 200 mls/hr IV.SIG Q6H BE Rx#:[id number] Vancomycin Inj 1,250 MG In NS 262.5 / 262.5 262.5 / 262.5 262.5 / 262.5 Inj 250 ML @ 250 mls/hr IV.SIG Q12H BE Rx#:[id number] Oral 840 / 840 Output: Urine 1600 / 1600 Other: # Voids 2 Date of Last Bowel Movement 02/05/18 Narrative: GENERAL: Well-nourished, well-developed adult male in no apparent distress SKIN: Warm and dry. HEAD: Atraumatic. Normocephalic. CARDIOVASCULAR: Regular rate and rhythm. RESPIRATORY: No accessory muscle use. Clear to auscultation. Breath sounds equal bilaterally. GASTROINTESTINAL: Abdomen soft, non-tender, nondistended. MUSCULOSKELETAL: Extremities without clubbing, cyanosis. Right foot wrapped in gauze. No obvious drainage. Toes well perfused. No erythema beyond extent of wrapping. NEUROLOGICAL: Awake and alert. No obvious cranial nerve deficits. Motor grossly within normal limits. Five out of 5 muscle strength in the arms and legs. Normal speech. PSYCHIATRIC: Appropriate mood and affect; insight and judgment normal. Results - Labs CBC & Chem 7: 02/07/18 04:28 02/07/18 04:28 Laboratory Results - last 24 hr 02/07/18 02/07/18 04:28 04:28 WBC 4.7 RBC 4.27 L Hgb 14.1 Hct 41.0 MCV 96.0 MCH 33.0 MCHC 34.4 RDW 13.7 Plt Count 183 MPV 8.9 Neut % (Auto) 40.4 Lymph % (Auto) 42.1 [place] % (Auto) 12.6 H Eos % (Auto) 4.2 H Baso % (Auto) 0.7 Neut # (Auto) 1.9 Lymph # (Auto) 2.0 [place] # (Auto) 0.6 Eos # (Auto) 0.2 Baso # (Auto) 0.0 WBC Differential . Differential Comment Auto diff final Sodium 140 Potassium 4.2 Chloride 105 Carbon Dioxide 28.1 Anion Gap 7 BUN 6 L Creatinine 0.94 Estimated GFR Greater than 89 Random Glucose 82 Calcium 8.6 Total Bilirubin 0.3 AST 24 ALT 17 Alkaline Phosphatase 65 Total Protein 6.9 Albumin 3.1 L Microbiology 02/05/18 22:55 Blood - Peripheral Aerobic Blood Culture - Preliminary No growth in 2 days 02/05/18 22:55 Blood - Peripheral Anaerobic Blood Culture - Preliminary No growth in 2 days 02/05/18 23:00 Blood - Peripheral Aerobic Blood Culture - Preliminary No growth in 2 days 02/05/18 23:00 Blood - Peripheral Anaerobic Blood Culture - Preliminary No growth in 2 days 02/06/18 10:33 Abscess - Foot Gram Stain - Final 02/06/18 10:33 Abscess - Foot Wound Culture - Preliminary No growth in 24 hours Assessment and Plan - Plan Patient is a 47-year-old -[place] male who presented with infection of the fourth and fifth toe of the right foot. He has no other significant medical history per his report. He is a smoker. Cellulitis of the right foot -I&D by podiatry bedside 02/06. -Culture sent; no growth times 1 day -MRI indicated no osteomyelitis -Vanco and Zosyn started 02/06. -Podiatry consulted; WBAT in surgical shoe -PT consulted for assistance in ambulation Tobacco abuse -Cessation counseled Hypertension -Resolved without medication. Most likely related to pain DVT prophylaxis: Lovenox Discharge planning: Patient will need IV antibiotic treatment x 2 weeks. ID consulted for possible PICC and outpatient infusion. Will also likely need wound care.
[2018-02-07] MEDS: Enoxaparin Inj 40 MG/0.4 ML Syringe SQ SCH (17:37)
[2018-02-07] MEDS ORDERED: Pharmacy Ordered Lab Info OTHER ONE (21:45)
[2018-02-08] MEDS: Vancomycin Inj 1,000 MG in Sodium Chlor 0.9% Inj 250 ML IV.SIG SCH ×3 (05:29→21:40)
[2018-02-08] MEDS: Piperacil/Tazo 4.5 GM Premix 4.5 GM/100 ML BAG IV.SIG SCH ×4 (05:30→23:19)
[2018-02-08] MEDS: Sod Chloride 0.9% Inj 1,000 ML IV.CONT SCH ×2 (06:31→15:32)
--- NOTE | 2018-02-08 10:31 | P.PN ---
Subjective Interval history: Patient is seen lying quietly in bed. He reports that he is feeling quite well and would like to go home. He is able to get up and ambulate on his foot without significant pain. No fever or chills. Podiatry did change his dressing this morning. Physical Exam Vital signs: Vital Signs 02/07/18 12:00 02/07/18 16:00 02/07/18 20:00 Temperature 97.9 F 84 F L 98.1 F Pulse Rate 81 84 83 Respiratory Rate 20 20 18 Blood Pressure 121/63 150/88 H 135/83 Pulse Oximetry 97 97 97 02/08/18 00:00 02/08/18 03:02 02/08/18 04:00 Temperature 97.9 F 97.8 F Pulse Rate 70 73 Respiratory Rate 18 18 18 Blood Pressure 120/66 137/80 Pulse Oximetry 96 95 02/08/18 08:00 Temperature 98.0 F Pulse Rate 85 Respiratory Rate 16 Blood Pressure 133/86 Pulse Oximetry 96 Intake & Output 02/07/18 02/08/18 02/08/18 18:59 06:59 18:59 Intake Total 1362.5 / 1362.5 712.5 / 712.5 Output Total 5 / 5 Balance 1357.5 / 1357.5 712.5 / 712.5 Weight 52.2 kg Intake: IV 1362.5 / 1362.5 712.5 / 712.5 NS Inj 1,000 ML @ 100 mls/hr IV 1000 / 1000 .CONT .Q10H BE Rx#:[id number] Zosyn 4.5 GM Premix 4.5 gm In 100 / 100 200 / 200 100 ml @ 200 mls/hr IV.SIG Q6H EB Rx#:[id number] Vancomycin Inj 1,000 MG In NS 250 / 250 Inj 250 ML @ 250 mls/hr IV.SIG Q8H BE Rx#:[id number] Vancomycin Inj 1,250 MG In NS 262.5 / 262.5 262.5 / 262.5 Inj 250 ML @ 250 mls/hr IV.SIG Q12H BE Rx#:[id number] Output: Urine 4 / 4 Stool / Other: # Voids 2 Date of Last Bowel Movement 02/07/18 02/07/18 Narrative: GENERAL: Well-nourished, well-developed adult male in no apparent distress SKIN: Warm and dry. HEAD: Atraumatic. Normocephalic. CARDIOVASCULAR: Regular rate and rhythm. RESPIRATORY: No accessory muscle use. Clear to auscultation. Breath sounds equal bilaterally. GASTROINTESTINAL: Abdomen soft, non-tender, nondistended. MUSCULOSKELETAL: Extremities without clubbing, cyanosis. Right foot wrapped in gauze. No obvious drainage. Toes well perfused. No erythema beyond extent of wrapping. NEUROLOGICAL: Awake and alert. No obvious cranial nerve deficits. Motor grossly within normal limits. Five out of 5 muscle strength in the arms and legs. Normal speech. PSYCHIATRIC: Appropriate mood and affect; insight and judgment normal. Results - Labs CBC & Chem 7: 02/07/18 04:28 02/07/18 04:28 Laboratory Results - last 24 hr 02/07/18 22:30 Vancomycin Trough 9.9 Microbiology 02/05/18 22:55 Blood - Peripheral Aerobic Blood Culture - Preliminary No growth in 2 days 02/05/18 22:55 Blood - Peripheral Anaerobic Blood Culture - Preliminary No growth in 2 days 02/05/18 23:00 Blood - Peripheral Aerobic Blood Culture - Preliminary No growth in 2 days 02/05/18 23:00 Blood - Peripheral Anaerobic Blood Culture - Preliminary No growth in 2 days 02/06/18 10:33 Abscess - Foot Gram Stain - Final 02/06/18 10:33 Abscess - Foot Wound Culture - Preliminary No growth in 24 hours Assessment and Plan - Plan Patient is a 47-year-old -[place] male who presented with infection of the fourth and fifth toe of the right foot. He has no other significant medical history per his report. He is a smoker. Cellulitis of the right foot -I&D by podiatry bedside 02/06. -Culture sent; no growth times 1 day -MRI indicated no osteomyelitis -Vanco and Zosyn started 02/06. -Podiatry consulted; WBAT in surgical shoe -PT consulted for assistance in ambulation Tobacco abuse -Cessation counseled Hypertension -Resolved without medication. Most likely related to pain DVT prophylaxis: Lovenox Discharge planning: Home with oral antibiotics versus infusion? Pending podiatry recommendation.
[2018-02-08] MEDS: Enoxaparin Inj 40 MG/0.4 ML Syringe SQ SCH (17:22)
[2018-02-08] MEDS: Morphine Inj 4 MG/ML Vial IV.PUSH PRN (20:56)
--- NOTE | 2018-02-08 21:30 | P.PNPOD ---
Subjective Interval history: s/p Right foot I and D Dr Nathan , DOS 301/8 See in NAD Physical Exam Vital signs: Vital Signs 02/08/18 00:00 02/08/18 03:02 02/08/18 04:00 Temperature 97.9 F 97.8 F Pulse Rate 70 73 Respiratory Rate 18 18 18 Blood Pressure 120/66 137/80 Pulse Oximetry 96 95 02/08/18 08:00 02/08/18 12:00 02/08/18 16:00 Temperature 98.0 F 98.2 F 97.9 F Pulse Rate 85 81 73 Respiratory Rate 16 16 16 Blood Pressure 133/86 118/77 137/79 Pulse Oximetry 96 98 98 02/08/18 20:59 Temperature Pulse Rate Respiratory Rate 18 Blood Pressure Pulse Oximetry Intake & Output 02/08/18 02/08/18 02/09/18 06:59 18:59 06:59 Intake Total 712.5 / 712.5 1070 / 1070 Balance 712.5 / 712.5 1070 / 1070 Weight 52.2 kg Intake: IV 712.5 / 712.5 350 / 350 Zosyn 4.5 GM Premix 4.5 gm In 200 / 200 100 / 100 100 ml @ 200 mls/hr IV.SIG Q6H BE Rx#:[id number] Vancomycin Inj 1,000 MG In NS 250 / 250 250 / 250 Inj 250 ML @ 250 mls/hr IV.SIG Q8H BE Rx#:[id number] Vancomycin Inj 1,250 MG In NS 262.5 / 262.5 Inj 250 ML @ 250 mls/hr IV.SIG Q12H BE Rx#:[id number] Oral 720 / 720 Other: # Voids 2 4 Date of Last Bowel Movement 02/07/18 Narrative: RLE No streaking, no active drainage and no purulence. + minimal tenderness on palpation at the incision site. NVS unchanged. Medications and Allergies Active Medications: Active Medications Hydrocodone Bitart/Acetaminophen ([place] 7.5/325) 1 tab PO Q4H PRN PRN Reason: PAIN SCALE 6 TO 10 Last Admin: 02/08/18 17:23 Dose: 1 tab Hydrocodone Bitart/Acetaminophen ([place] 5/325) 1 tab PO Q4H PRN PRN Reason: PAIN SCALE 3 TO 5 Al Hydroxide/Mg Hydroxide (Milk Of Magnesia Liq) 30 ml PO Q12H PRN PRN Reason: Mild Constipation Bacitracin (Baciguent Oint) 1 applicatio TOPICAL BID [facility] Last Admin: 02/08/18 18:15 Dose: Not Given Bisacodyl (Dulcolax Supp) 10 mg RECTAL DAILY PRN PRN Reason: SEVERE CONSITIPATION Enoxaparin Sodium (Lovenox Inj) 40 mg SQ Q24H [facility] Last Admin: 02/08/18 17:22 Dose: 40 mg Sodium Chloride (Ns Inj) 1,000 mls @ 100 mls/hr IV.CONT .Q10H [facility] Last Admin: 02/08/18 15:32 Dose: Not Given Piperacillin/Tazobactam/Dextrose (Zosyn 4.5 Gm Premix) 4.5 gm in 100 mls @ 200 mls/hr IV.SIG Q6H [facility] Last Infusion: 02/08/18 18:16 Dose: Infused Vancomycin HCl 1,000 mg/ (Sodium Chloride) 250 mls @ 250 mls/hr IV.SIG Q8H [facility] Last Infusion: 02/08/18 18:16 Dose: Infused Lactulose (Lactulose Liq) 30 ml PO DAILY PRN PRN Reason: SEVERE CONSITIPATION Miscellaneous Information ([facility] Ordered Lab Info) 0 each OTHER ONCE ONE Stop: 02/09/18 05:46 Morphine Sulfate (Morphine Inj) 4 mg IV.PUSH Q3H PRN PRN Reason: BREAKTHROUGH PAIN Last Admin: 02/08/18 20:56 Dose: 4 mg Naloxone HCl (Narcan Inj) 0.4 mg IV.PUSH UNSCH PRN PRN Reason: SEE LABEL COMMENTS Pharmacy Profile Note (Vancomycin Consult Pharmacy) 1 each OTHER UNSCH PRN PRN Reason: Pharmacy to dose Sennosides (Senokot) 17.2 mg PO Q12H PRN PRN Reason: Moderate Constipation Allergies Allergy/AdvReac Type Severity Reaction Status Date / Time No Known Allergies Allergy Verified 02/05/18 20:28 Results - Labs CBC & Chem 7: 02/07/18 04:28 02/07/18 04:28 Laboratory Results - last 24 hr 02/07/18 22:30 Vancomycin Trough 9.9 Microbiology 02/06/18 10:33 Abscess - Foot Gram Stain - Final 02/06/18 10:33 Abscess - Foot Wound Culture - Preliminary 02/05/18 22:55 Blood - Peripheral Aerobic Blood Culture - Preliminary No growth in 3 days 02/05/18 22:55 Blood - Peripheral Anaerobic Blood Culture - Preliminary No growth in 3 days 02/05/18 23:00 Blood - Peripheral Aerobic Blood Culture - Preliminary No growth in 3 days 02/05/18 23:00 Blood - Peripheral Anaerobic Blood Culture - Preliminary No growth in 3 days Assessment and Plan - Assessment (1) Cellulitis of foot, right Code(s): L03.115 - Cellulitis of right lower limb Status: Acute - Plan Dressing change on 02/08/18 Much improved. Recommend Bactrim DS x 2 weeks. Since no growth in 72 hr OK to d/c per Podiatry F/U with Dr Nathan on 02/11/18 on 02/12.
[2018-02-09] MEDS: Sod Chloride 0.9% Inj 1,000 ML IV.CONT SCH ×2 (01:33→10:31)
[2018-02-09] MEDS ORDERED: Pharmacy Ordered Lab Info OTHER ONE (05:45)
[2018-02-09] MEDS: Morphine Inj 4 MG/ML Vial IV.PUSH PRN (05:52)
[2018-02-09] MEDS: Piperacil/Tazo 4.5 GM Premix 4.5 GM/100 ML BAG IV.SIG SCH ×2 (05:52→10:32)
[2018-02-09] MEDS: Vancomycin Inj 1,000 MG in Sodium Chlor 0.9% Inj 250 ML IV.SIG SCH (06:43)
[2018-02-09 08:30] VITALS: RESP 20
--- NOTE | 2018-02-09 12:23 | P.DS ---
Date of admission: 02/06/18 02:12 Primary care physician: No Primary Care Physician Attending physician on discharge: Salvatore Montenegro Anticipated date of discharge: 02/09/18 Brief History from admission: 47-year-old male with no pertinent medical history who presents with a one-week history of swelling, redness, constant sharp nonradiating pain in the right lateral foot which is worse with movement. Patient was seen in the ER on 02/04, sent home with prescription for Keflex and Bactrim which he has been taking without improvement, and with continued worsening of pain in right foot. He denies any fevers, chills, chest pain, shortness of breath. Says that he is otherwise feeling all right apart from the excruciating pain. Patient update on day of discharge: Patient awake and alert. States he feels well. He is hoping to go home today. It [birth year] today. Significant other is at the bedside. He denies any fever or chills. Denies any chest pain or shortness of breath. Denies any nausea, vomiting or abdominal pain. Denies any complaints of pain in the right foot. DS: Diagnosis - Discharge Diagnosis (1) Cellulitis of foot, right Status: Acute (2) Abscess of right foot Status: Acute DS: Medications - Discharge Medications Prescriptions: bacitracin 1 applicatio TOPICAL DAILY #1 tube sulfamethoxazole-trimethoprim [Bactrim DS] 1 tab PO Q12H 14 Days #28 tab DS: Summary Hospital Course: Patient admitted with swelling, redness and sharp constant nonradiating pain in the right lateral foot worse with movement. Patient tried and failed outpatient antibiotics at home. Patient was placed on broad-spectrum antibiotics. Podiatry was consulted. MRI of the right foot was obtained and did not show any evidence of osteomyelitis. Bedside I&D was performed by podiatry. Cultures failed to show any growth. Daily wound care was performed as instructed by Dr. Nathan. Patient improved clinically. Patient was cleared for discharge from podiatry standpoint when cultures failed to show any growth in 72 hours. Podiatry recommended Bactrim DS for 2 weeks and follow-up with Dr. Nathan on 02/11 or 02/12. Case management assisted with discharge planning a mandatory referral was ordered to be seen by Dr. Nathan on 02/11 or 02/12. - Time Spent with Patient Total time spent providing and/or coordinating discharge services: Greater than 30 minutes - Quality: VTE Deep Vein Thrombosis/Pulmonary Embolism Present on Admission: No Exam Vital signs: Vital Signs 02/08/18 16:00 02/08/18 20:00 02/08/18 20:59 Temperature 97.9 F 98.4 F Pulse Rate 73 71 Respiratory Rate 16 18 18 Blood Pressure 137/79 145/87 H Pulse Oximetry 98 96 02/09/18 00:00 02/09/18 00:12 02/09/18 04:00 Temperature 97.9 F 97.6 F Pulse Rate 56 L 59 L Respiratory Rate 18 18 18 Blood Pressure 118/75 115/73 Pulse Oximetry 91 L 93 L 02/09/18 05:59 02/09/18 08:00 Temperature 98.1 F Pulse Rate 80 Respiratory Rate 18 20 Blood Pressure 117/75 Pulse Oximetry 95 Intake & Output 02/08/18 02/09/18 02/09/18 18:59 06:59 18:59 Intake Total 1070 / 1070 1113 / 1113 200 / 200 Balance 1070 / 1070 1113 / 1113 200 / 200 Weight 52.2 kg Intake: IV 350 / 350 450 / 450 Zosyn 4.5 GM Premix 4.5 gm In 100 / 100 200 / 200 100 ml @ 200 mls/hr IV.SIG Q6H BE Rx#:[id number] Vancomycin Inj 1,000 MG In NS 250 / 250 250 / 250 Inj 250 ML @ 250 mls/hr IV.SIG Q8H BE Rx#:[id number] Oral 720 / 720 663 / 663 Other 200 / 200 Other: # Voids 4 2 Date of Last Bowel Movement 02/07/18 02/07/18 Narrative: GENERAL: Well-nourished, well-developed middle-aged -Martiniquais male patient, in no apparent distress. Awake and alert. Appears comfortable. Significant other at bedside. SKIN: Warm and dry. HEAD: Atraumatic. Normocephalic. CARDIOVASCULAR: Regular rate and rhythm. RESPIRATORY: No accessory muscle use. Clear to auscultation. Breath sounds equal bilaterally. GASTROINTESTINAL: Abdomen soft, non-tender, nondistended. MUSCULOSKELETAL: Extremities without clubbing, cyanosis. Right foot wrapped in gauze. No obvious drainage. Toes well perfused. No erythema beyond extent of wrapping. NEUROLOGICAL: Awake and alert. No obvious cranial nerve deficits. Motor grossly within normal limits. Five out of 5 muscle strength in the arms and legs. Normal speech. PSYCHIATRIC: Appropriate mood and affect; insight and judgment normal. Results Procedures completed during hospitalization: Bedside I&D performed by Dr. Nathan 02/06/18 PROCEDURE: The foot was cleaned using alcohol swab pads and the abscess was the deroofed. Deep cultures were obtained. Thick callus tissue was removed from the fourth interspace in order to gain access to the original wound site. The area was then cleansed with sterile saline and gauze. The wound site was probed. There was no exposed bone, but it does probe just shy of 1 inch into the first interspace. Total wound is approximately 2 x 1 cm x 1 cm. There was thick purulent drainage noted from the superficial abscess, but none from the deep interspace wound. There is cellulitis extending to the mid foot level. Labs on day of discharge: Labs from last 24 hours 02/09/18 06:40 Vancomycin Trough 13.1 H Preliminary micro results at discharge 02/05/18 22:55 Aerobic Blood Culture - Preliminary Blood - Peripheral No growth in 4 days Anaerobic Blood Culture - Preliminary No growth in 4 days 02/05/18 23:00 Aerobic Blood Culture - Preliminary Blood - Peripheral No growth in 4 days Anaerobic Blood Culture - Preliminary No growth in 4 days 02/06/18 10:33 Wound Culture - Preliminary Abscess - Foot - Impressions ITS Impressions Toe X-Ray 02/05/18 22:32 CONCLUSION: Suspected soft tissue swelling between the fourth and fifth MTP joints with some lack of visualization of the cortex at the medial aspect of the fifth metatarsal head. Osteomyelitis cannot be excluded. Foot MRI 02/06/18 00:00 CONCLUSION: 1. There are no imaging findings to indicate osteomyelitis. 2. Severe soft tissue swelling and subcutaneous edema involving the distal lateral aspect of the left foot, the entire fifth digit, and the lateral aspect of the fourth digit. There is what appears to be a blister along the dorsal aspect of the fifth digit. No well-defined organized fluid collection or abscess is identified. However, there is some nonenhancing fluid signal between the fourth and fifth digits. Suggest follow-up if condition persists. Discharge Plan - Discharge Disposition Patient Disposition: 01 Discharge Home - Discharge Condition Condition: Stable - Discharge Order Discharge Orders: Discharge Order (Routine); Ordered 02/09/18 Ordered By: Brooklyn Otero - Discharge Details Anticipated Discharge Date: 02/09/18 Discharge Comment: Discharge pending patient instruction on daily wound care and referral to see Dr. Nathan on 02/11 or 02/12 - Physicians Team Primary Care Provider: Primary Care Minerva Cuello Attending Provider: Salvatore Montenegro Other Providers: Kamla Nathan DPM
[2018-02-09 12:27] VITALS: BP 128/75; PULSE 74; TEMP 97.7; O2SAT 99
== END 2018-02-09 11:12 | disposition home or self-care (01) ==
LOC: NEPE 20:15 → NEDA 02-06 02:12 → N05 02-06 03:15 → NEDA 02-06 03:19
PROVIDERS: ADMIT Hospitalist; ATTEND Hospitalist